=== PATIENT | male | born 1960 | race Two or more races ===

== ENCOUNTER 2020-08-09 13:12 | Emergency (ER) | payer MEDICAID, OTHER ==
[~2020-08-09] VITALS: Ht 172.7 cm; Wt 95.3 kg
[2020-08-09 13:14] VITALS: BP 127/88
[2020-08-09] MEDS ORDERED: ACETAMINOPHEN 500 MG TAB PO ONE (15:45)
== END 2020-08-09 16:19 | disposition home or self-care (01) ==
LOC: ER 13:12
DX: S92.424A Nondisplaced fracture of distal phalanx of right great toe, initial encounter for closed fracture (principal); I10 Essential (primary) hypertension; W22.8XXA Striking against or struck by other objects, initial encounter; Y93.89 Activity, other specified; Y92.89 Other specified places as the place of occurrence of the external cause; Y99.8 Other external cause status
CPT/HCPCS: 73630; 99283; L3260